=== PATIENT | female | born 1965 | race Caucasian/White ===

== ENCOUNTER 2016-04-18 07:13 | Outpatient (CLI) | payer OTHER ==
--- NOTE | 2016-04-18 08:01 | DIAGNOSTIC IMAGING REPORT ---
PROCEDURE: CT SINUS/FACIAL BONES W/O CONT CLINICAL INDICATION: ACUTE SINUSITIS TECHNIQUE: Noncontrast axial images with coronal reformations. COMPARISON: None. FINDINGS: Mild bilateral maxillary and sphenoid mucosal thickening. Remaining paranasal sinuses are clear. Patent ostiomeatal units. Moderate right nasal septal deviation. No evidence of a bony erosion. IMPRESSION: 1. Mild bilateral maxillary and sphenoid chronic sinus disease. 2. Moderate right nasal septal deviation. All CT scans at this facility use dose modulation, iterative reconstruction, and/or weight-based dosing when appropriate to reduce radiation dose to as low as reasonably achievable.
== END 2016-04-18 23:00 ==
LOC: CT SRH 07:13
DX: J32.0 Chronic maxillary sinusitis (principal); J32.3 Chronic sphenoidal sinusitis; E11.9 Type 2 diabetes mellitus without complications